=== PATIENT | male | born 1955 | race Two or more races ===

== ENCOUNTER 2017-10-30 13:31 | Outpatient (CLI) | payer OTHER | END 2017-10-30 13:40 | disposition home or self-care (01) | LOC: LAB 13:31 | DX: C61 Malignant neoplasm of prostate (principal); Z51.81 Encounter for therapeutic drug level monitoring ==

== ENCOUNTER → 2017-10-30 | Outpatient (CLI) | payer OTHER | END | disposition home or self-care (01) | LOC: TOM 12:36 | DX: C61 Malignant neoplasm of prostate (principal) | CPT/HCPCS: 71260; Q9965 ==

== ENCOUNTER 2021-12-28 05:31 | Day surgery (SDC) | payer OTHER ==
[~2021-12-28] VITALS: Ht 175.3 cm; Wt 72.6 kg
[~2021-12-28 05:31] MED LIST: LIPIT PO; TOPROL XL100 M1 PO
[2021-12-28] MEDS ORDERED: PERCOCET 5-3251 EACH PO (10:17)
== END 2021-12-28 18:00 | disposition home or self-care (01) ==
LOC: CIR.AMB 05:31
PROVIDERS: ATTEND Surgery
DX: N52.01 Erectile dysfunction due to arterial insufficiency (principal); Z20.822 Contact with and (suspected) exposure to COVID-19; Z88.8 Allergy status to other drugs, medicaments and biological substances; Z91.013 Allergy to seafood
CPT/HCPCS: 54405; C1813

== ENCOUNTER 2022-01-06 12:52 | Outpatient (CLI) | payer OTHER ==
[~2022-01-06 12:52] MED LIST changes: +PERCOCET 5-3251 EACH PO
== END 2022-01-06 13:03 | disposition home or self-care (01) ==
LOC: TOM 12:52
PROVIDERS: ATTEND Surgery
DX: R91.8 Other nonspecific abnormal finding of lung field (principal)